=== PATIENT | male | born 2000 | race Caucasian/White ===

== ENCOUNTER 2024-03-17 07:29 | Emergency (ER) | payer OTHER ==
[~2024-03-17] VITALS: Ht 177.8 cm; Wt 61.9 kg
[2024-03-17 08:28] VITALS: BP 110/64; PULSE 60; RESP 16; TEMP 98.2; O2SAT 97
[2024-03-17] MEDS ORDERED: AUG875T PO (08:42)
[2024-03-17] MEDS ORDERED: NAPR-746 PO (08:42)
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
[2024-03-17] MEDS: TETANUS-DIPTH-ACEL PERTUSSIS 0.5ML SYR Tdap IM ONE (08:55)
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
== END 2024-03-17 09:33 | disposition home or self-care (01) ==
LOC: ER 07:29
DX: M54.2 Cervicalgia (principal); S60.947A Unspecified superficial injury of left little finger, initial encounter; X58.XXXA Exposure to other specified factors, initial encounter; Y93.89 Activity, other specified; Y92.89 Other specified places as the place of occurrence of the external cause; Y99.8 Other external cause status
CPT/HCPCS: 72040; 90471; 90715; 96372